=== PATIENT | male | born 1960 ===

== ENCOUNTER → 2024-03-30 | Outpatient (CLI) | payer MEDICARE, BC ==
[~2024-03-30] VITALS: Ht 177.8 cm; Wt 131.0 kg
[~2024-03-30] MED LIST: CLOZ25TA52 PO; EMPA25TA3 PO; GABA-1181 PO; HYDR-4062 PO; PROP20TA18 PO; ROSU20TA73 PO; SITA100 PO
[2024-03-30 10:58] VITALS: BP 126/68; PULSE 77; RESP 18; TEMP 98.1; O2SAT 93
== END | disposition home or self-care (01) ==
LOC: SRCNTR 10:26
PROVIDERS: ATTEND Internal Medicine
DX: J44.9 Chronic obstructive pulmonary disease, unspecified (principal); E11.9 Type 2 diabetes mellitus without complications; E66.9 Obesity, unspecified; Z87.891 Personal history of nicotine dependence; Z88.8 Allergy status to other drugs, medicaments and biological substances; Z79.899 Other long term (current) drug therapy
CPT/HCPCS: G0463; Z7500